=== PATIENT | female | born 1965 | race Caucasian/White ===

== ENCOUNTER 2017-02-21 10:20 | Emergency (ER) | payer SELFPAY ==
[2017-02-21 10:26] VITALS: BP 142/85
--- NOTE | 2017-02-21 11:12 | ERNOTE ---
ENT HPI Date of Service: 02/21/17 Presenting Symptoms: other - ear pain, lesion in ear Time Seen by Provider: 02/21/17 10:59 Source: patient - Immun/Allergies/Home Medications Immunizations: IMMUNIZATION HX Immunizations Up to Date Yes History of Influenza Vaccine No Hx Pneumococcal Vaccination No Allergies/Adverse Reactions: Allergies Allergy/AdvReac Type Severity Reaction Status Date / Time Penicillins Allergy Unknown Verified 02/21/17 10:26 Home Medications: HOME MEDICATIONS Cholecalciferol [Vitamin D] 1,000 unit PO DAILY 04/01/16 [Last Taken Unknown] Clindamycin HCl [Cleocin HCl] 300 mg PO QID #40 capsule 02/21/17 [Last Taken Unknown] - History of Present Illness Narrative: patient has noticed lesiionn in ear that is painful Severity: Present: moderate ENT Location: Present: ear (R) Prearrival Treatment: Present: no prearrival treatment Modifying Factors - Improves: Reports: nothing Modifying Factors - Worsens: Reports: nothing Associated Symptoms - ENT: Reports: denies symptoms - no treatment Review of Systems - Review of Systems Constitutional: Present: no symptoms reported EYE: Present: no symptoms reported ENT: Present: ear pain Respiratory: Present: no symptoms reported Cardiology: Present: no symptoms reported Genitourinary: Present: no symptoms reported Musculoskeletal: Present: no symptoms reported Skin: Present: no symptoms reported Neurological: Present: no symptoms reported Endocrine: Present: no symptoms reported Hematologic/Lymphatic: Present: no symptoms reported Psych: Present: no symptoms reported All Other Systems: All systems neg except as marked - Patient's Past Medical History Patient History - Medical: No pertinent hx Patient History - Cardiac/Respiratory: No pertinent hx Patient History - Cancer: Breast Patient History - Surgical Procedures: , Hysterectomy, T & A Patient History - Other: None LMP (females 10-50): Menopausal - Family History Family History:: no untoward family reactions to anesthesia, no familial bleeding tendencies, no family history of clotting disorders, no family history of premature - Social History Living Situations: home Abuse History: No History of abuse Psych History: No pertinent hx Does anyone smoke in the home?: Yes Smoking Status: Current every day smoker Have you smoked in the past 12 months: Yes Alcohol Use: occasionally Drug Use: none - Immunizations Immunizations Up to Date: Yes Hx Pneumococcal Vaccination: No History of Influenza Vaccine: No Physical Exam - Physical Exam General Appearance: Present: mild distress Head Exam: Present: normal inspection, no evidence of injury, no tenderness w palpation Eye Exam: Normal inspection: bilateral, PERRL: bilateral, EOMI: bilateral Ears, Nose, Throat: Present: other - appearance of boil in right ear canal Neck: Present: normal inspection, nontender Respiratory: Present: no respiratory distress, normal breath sounds, no accessory muscle use, chest nontender Cardiovascular/Chest: Present: regular rate, rhythm, no murmur, normal peripheral pulses Peripheral Pulses: N=norm/S=strong/W=weak/B=bound/A=absent: Carotid (R): Normal , Carotid (L): Normal, Radial (R): Normal, Radial (L): Normal, Femoral (R): Normal, Femoral (L): Normal, Dorsalis-pedis (R): Normal, Dorsalis-pedis (L): Normal Gastrointestinal/Abdominal: Present: normal bowel sounds, nontender, nondistended, soft, no organomegaly Extremity Exam: Present: normal inspection, non-tender, normal range of motion, no edema Neurological Exam: Present: alert, oriented, normal mood/affect, no motor/ sensory deficits DTR: N=norm/NB=norm/brisk/A=abs/DD=dull/dimin/HC=hyperactive: Bicep (R): Normal , Bicep (L): Normal, Tricep (R): Normal, Tricep (L): Normal, Knee (R): Normal, Knee (L): Normal, Ankle (R): Normal, Ankle (L): Normal Skin Exam: Present: normal color, warm/dry ED Progress - Vital Signs Vital Signs: Vital Signs 02/21/17 10:23 Temperature 36.4 C L Pulse Rate 92 Respiratory 17 Rate Blood Pressure 142/85 - Progress/Reassessment Chief Complaint: Earache Departure Clinical Impression: Boil - Departure Disposition: Home self-care Condition: Fair Instructions: Abscess, [id number] Prescriptions: Clindamycin HCl [Cleocin HCl] 300 mg PO QID #40 capsule
== END 2017-02-21 11:20 | disposition home or self-care (01) ==
LOC: ER 10:20
DX: H60.01 Abscess of right external ear (principal); Z85.3 Personal history of malignant neoplasm of breast; F17.200 Nicotine dependence, unspecified, uncomplicated

== ENCOUNTER 2017-04-07 14:17 | Emergency (ER) | payer SELFPAY ==
--- NOTE | 2017-04-07 14:50 | ERNOTE ---
Upper Extremity HPI - General Time Seen by Provider: 04/07/17 14:41 Source: patient Exam Limitations: no limitations - Immun/Allergies/Home Medications Immunizations: IMMUNIZATION HX Immunizations Up to Date Yes History of Influenza Vaccine No Hx Pneumococcal Vaccination No Allergies/Adverse Reactions: Allergies Allergy/AdvReac Type Severity Reaction Status Date / Time Penicillins Allergy Unknown Verified 04/07/17 14:28 Home Medications: HOME MEDICATIONS Cholecalciferol [Vitamin D] 1,000 unit PO DAILY 04/01/16 [Last Taken Unknown] Ibuprofen [Motrin] 600 mg PO TID PRN #30 tab 04/07/17 [Last Taken Unknown] - History of Present Illness Narrative: Patient presents to the emergency room for three-day history of pain swelling and redness of the left wrist. She denies any repetitive motion or movement or any trauma. She does have a history of stage III breast cancer for which she states she did not need chemotherapy. Not have a primary care physician. Review of Systems - Review of Systems Constitutional: Present: no symptoms reported EYE: Present: no symptoms reported ENT: Present: no symptoms reported Respiratory: Present: no symptoms reported Cardiology: Present: no symptoms reported Gastrointestinal/Abdominal: Present: no symptoms reported Genitourinary: Present: no symptoms reported Musculoskeletal: Present: joint swelling - there is joint swelling and redness of the left wrist on the lateral aspect on the dorsal aspect of the distal radial area. Patient is able to flex her wrist but it hurts. She is exquisitely tender when this examiner just touches the area of redness. Neurological: Present: no symptoms reported - Patient's Past Medical History Patient History - Medical: No pertinent hx Patient History - Cardiac/Respiratory: No pertinent hx Patient History - Cancer: Breast Patient History - Surgical Procedures: , Hysterectomy, T & A Patient History - Other: None - Social History Living Situations: home Abuse History: No History of abuse Psych History: No pertinent hx Alcohol Use: none Drug Use: none - Immunizations Immunizations Up to Date: Yes Hx Pneumococcal Vaccination: No History of Influenza Vaccine: No Physical Exam - Physical Exam General Appearance: Present: wd/wn, alert, no apparent distress Ears, Nose, Throat: Present: normal ENT inspection, normal pharynx Neck: Present: normal inspection, nontender, supple, full range of motion Respiratory: Present: no respiratory distress, normal breath sounds, no accessory muscle use, chest nontender, lungs clear Cardiovascular/Chest: Present: regular rate, rhythm, no murmur, normal peripheral pulses Extremity Exam: Present: other - patient does have redness and inflammation of the distal aspect of her left forearm/wrist area. Area is red and slightly swollen in the distal radius area and just touching the skin makes the patient jump there are no lesions noted there. There are no deformities Neurological Exam: Present: alert, oriented, normal mood/affect, no motor/ sensory deficits ED Progress - Results and Orders Patient's Lab Results:: I have reviewed the patient's lab results. - Vital Signs Patient's Vital Signs:: I have reviewed the patient's vital signs. Vital Signs: Vital Signs 04/07/17 14:24 Temperature 36.2 C L Pulse Rate 95 Respiratory 12 Rate Blood Pressure 129/84 O2 Sat by Pulse 99 Oximetry - X-Ray X-Ray #1 X-Ray: wrist - Progress/Reassessment Chief Complaint: Wrist Injury/Pain Plan - Plan Plan: This patient's sedimentation rate and uric acid is negative at this time this patient has left wrist arthralgia and she will be treated appropriately she was strongly encouraged to find a primary care physician and follow up with. Departure Clinical Impression: Arthritis of wrist, left - Departure Disposition: Home self-care Condition: Good Instructions: Arthritis Prescriptions: Ibuprofen [Motrin] 600 mg PO TID PRN #30 tab PRN Reason: Pain
[2017-04-07 15:03] LABS: Hematocrit 45.1 % (37.0-47.0); Mean Cell Volume 95.6 fl (78-100); Mean Corpuscular Hemoglobin 31.8 pg (27-31); Mean Corpuscular Hgb Conc 33.3 g/dl (32-36); Mean Platelet Volume 10.1 fl (6.0-9.5); Neutrophil # 4.3 K/mm3 (1.3-6.0); Neutrophil % 65.4 % (42-75.0); Platelet Count 206 K/mm3 (150-450); Red Blood Count 4.72 M/mm3 (4.2-5.4); Red Cell Distribution Width 11.7 % (11.5-14.0); White Blood Count 6.6 K/mm3 (4.0-10.5)
[2017-04-07 15:09] LABS: CRP 0.2 mg/dL (0.0-0.9); Uric Acid 3.9 mg/dL (2.6-7.2)
[2017-04-07 15:48] VITALS: BP 106/80
== END 2017-04-07 15:31 | disposition home or self-care (01) ==
LOC: ER 14:17
DX: M19.032 Primary osteoarthritis, left wrist (principal); Z85.3 Personal history of malignant neoplasm of breast

== ENCOUNTER 2017-07-08 16:47 | Emergency (ER) | payer SELFPAY ==
[2017-07-08] MEDS ORDERED: KETOROLAC TROMETHAMINE 30 MG/ML VIAL IM ONE (17:08)
[2017-07-08 17:10] LABS: Hematocrit 42.9 % (37.0-47.0); Hemoglobin 14.8 gm/dL (12.5-16.0); Mean Cell Volume 93.7 fl (78-100); Mean Corpuscular Hemoglobin 32.3 pg (27-31); Mean Corpuscular Hgb Conc 34.5 g/dl (32-36); Neutrophil # 7.6 K/mm3 (1.3-6.0); Neutrophil % 79.3 % (42-75.0); Platelet Count 213 K/mm3 (150-450); Red Blood Count 4.58 M/mm3 (4.2-5.4); Red Cell Distribution Width 11.6 % (11.5-14.0); White Blood Count 9.6 K/mm3 (4.0-10.5)
--- NOTE | 2017-07-08 17:12 | ERNOTE ---
Lower Extremity HPI - Narrative Date of Service: 07/08/17 - General Lower Extremities Pain: knee: left Time Seen by Provider: 07/08/17 16:58 Source: patient Exam Limitations: no limitations - Immun/Allergies/Home Medications Immunizations: IMMUNIZATION HX Immunizations Up to Date Yes History of Influenza Vaccine No Hx Pneumococcal Vaccination No Allergies/Adverse Reactions: Allergies Allergy/AdvReac Type Severity Reaction Status Date / Time Penicillins Allergy Unknown Verified 04/07/17 14:28 Home Medications: HOME MEDICATIONS Cholecalciferol [Vitamin D] 1,000 unit PO DAILY 04/01/16 [Last Taken Unknown] Ibuprofen [Motrin] 600 mg PO TID PRN #30 tab 04/07/17 [Last Taken Unknown] predniSONE [Prednisone] 3 tab PO DAILY #9 tab 07/08/17 [Last Taken Unknown] - History of Present Illness Narrative: Pt. comes in with c/o L knee pain for 12 hours since she awoke this morning that has worsened throughout the day. Pt. denies any injury today but does state that her dog ran into this leg three days ago. Pt. denies any SOB, CP, NVD, fever, numbness, tingling, or alleviating factors despite taking 250mg of Tylenol and 162mg of ASA. Occurred: this morning Location of Incident: home Method of Injury: Reports: no apparent injury Modifying Factors - (Improves): Reports: other - enies Modifying Factors - (Worsens): Reports: movement Associated Symptoms: Reports: none. Denies: unable to bear weight, snapping, popping sensation, dizzy/light headedness, headache, weakness, sensory loss, chest pain, vomiting/diarrhea, bowel/bladder problems Other Injuries: Reports: none Subsequent Symptoms: Denies: sensory loss, numbness, motor loss Prior Treament: Denies: recently seen, treated by physician, recently hospitalized, similar symptoms before, currently on antibiotics Review of Systems - Review of Systems Constitutional: Present: no symptoms reported. Absent: fever, chills, weakness , fatigue, malaise EYE: Present: no symptoms reported. Absent: eye pain, double vision ENT: Present: no symptoms reported Respiratory: Present: no symptoms reported. Absent: shortness of breath, cough , wheezing Cardiology: Present: no symptoms reported. Absent: chest pain, palpitations, edema Gastrointestinal/Abdominal: Present: no symptoms reported. Absent: nausea, vomiting, diarrhea Genitourinary: Present: no symptoms reported. Absent: frequency, decreased urinary output Musculoskeletal: Present: joint pain - L knee. Absent: back pain Skin: Present: no symptoms reported. Absent: rash, change in hair/nails Neurological: Present: no symptoms reported. Absent: headache, dizziness/light- headedness, numbness, tingling All Other Systems: All systems neg except as marked - Patient's Past Medical History Patient History - Medical: No pertinent hx Patient History - Cardiac/Respiratory: No pertinent hx Patient History - Cancer: Breast Patient History - Surgical Procedures: , Hysterectomy, T & A Patient History - Other: None LMP (females 10-50): Menopausal - Social History Living Situations: home Abuse History: No History of abuse Psych History: No pertinent hx Smoking Status: Current every day smoker Have you smoked in the past 12 months: Yes Do you dip or chew tobacco: No Alcohol Use: sober Drug Use: none - Immunizations Immunizations Up to Date: Yes Hx Pneumococcal Vaccination: No History of Influenza Vaccine: No Physical Exam - Physical Exam General Appearance: Present: wd/wn, alert, no apparent distress Head Exam: Present: normal inspection, no evidence of injury Eye Exam: Normal inspection: bilateral Ears, Nose, Throat: Present: normal ENT inspection, normal pharynx Neck: Present: normal inspection, nontender, supple, full range of motion. Absent: lymphadenopathy (R), lymphadenopathy (L) Respiratory: Present: no respiratory distress, normal breath sounds, no accessory muscle use, chest nontender, lungs clear Cardiovascular/Chest: Present: regular rate, rhythm, no murmur, normal peripheral pulses Gastrointestinal/Abdominal: Present: normal bowel sounds, nontender, nondistended, soft, no organomegaly Back Exam: Present: normal inspection, normal range of motion, no CVA tenderness , no vertebral tenderness Extremity Exam: Present: normal range of motion, joint swelling - L knee, other - point tenderness of medial knee not over any bones or specific ligaments or tendons. Absent: calf tenderness, bony tenderness, extremity edema Neurological Exam: Present: alert, oriented, normal mood/affect, no motor/ sensory deficits Skin Exam: Present: normal color, warm/dry. Absent: pallor, skin rash ED Progress - Vital Signs Patient's Vital Signs:: I have reviewed the patient's vital signs. Vital Signs: Vital Signs 07/08/17 16:52 Temperature 37.3 C Pulse Rate 101 H Respiratory 16 Rate Blood Pressure 140/81 O2 Sat by Pulse 98 Oximetry - X-Ray X-Ray #1 X-Ray: knee Interpretation: Interp. by me X-ray Comments: No acute osseous abnormality, degenerative changes of L knee noted. - Progress/Reassessment Chief Complaint: Lower Extremity Pain/ Injury Progress:: Unchanged Departure Clinical Impression: Arthritis of knee, left - Departure Disposition: Home self-care Condition: Good Instructions: Osteoarthritis Additional Instructions: Please follow up with primary provider in 2-3 days if not improving. Prescriptions: predniSONE [Prednisone] 3 tab PO DAILY #9 tab
[2017-07-08] MEDS ORDERED: KETOROLAC TROMETHAMINE 30 MG/ML VIAL ONE (17:13)
[2017-07-08 17:29] LABS: Albumin * 3.7 gm/dl (3.4-5.0); Anion Gap 5.1 mmol/L (6.8-13.8); BUN/Creatinine Ratio 8.8 (9.0-21.6); Bilirubin, Total 0.4 mg/dL (0.0-1.1); Ca. Corrected For Albumin 8.4 mg/dL (8.4-10.2); Calcium * 8.5 mg/dL (7.9-10.9); Carbon Dioxide 36.5 mmol/L (24-32.6); Potassium 3.6 mmol/L (3.4-4.6); Total Protein 7.3 gm/dL (6.2-8.2); Uric Acid 3.9 mg/dL (2.6-7.2)
[2017-07-08] MEDS ORDERED: IBUPROFEN 600 MG TABLET PO ONE (17:37)
[2017-07-08] MEDS ORDERED: IBUPROFEN 600 MG TABLET ONE (17:38)
[2017-07-08 18:07] VITALS: BP 129/66
== END 2017-07-08 18:06 | disposition home or self-care (01) ==
LOC: ER 16:47
DX: F17.200 Nicotine dependence, unspecified, uncomplicated (principal); Z85.3 Personal history of malignant neoplasm of breast; M17.12 Unilateral primary osteoarthritis, left knee